=== PATIENT | male | born 1965 | race African-American/Black ===

== ENCOUNTER 2018-05-06 20:20 | Emergency (ER) | payer OTHER, MEDICAID ==
[~2018-05-06] VITALS: Ht 182.9 cm; Wt 128.0 kg
[~2018-05-06 20:20] MED LIST: AMLO10TA4 PO; CLON0.2T PO; COR6 PO; DOCU-138 PO; HYDR100T26 PO; ISOS20TA57 PO; LAM15 PO; LEVE1000 PO; OMEP40CA34 PO; TAMS-11 PO; VENL-180 PO
[2018-05-06] MEDS ORDERED: ASPIRIN 325MG TABLET PO ONE (21:15)
[2018-05-06 21:39] LABS: HEMATOCRIT. 41.2 % (42.0-52.0); HEMOGLOBIN. 13.3 g/dL (14.0-18.0); MEAN CORPUSCULAR HEMOGLOBIN 27.2 pg (28.0-32.0); MEAN CORPUSCULAR VOLUME 84.5 fL (80.0-94.0); MEAN PLATELET VOLUME 8.9 fl (7.4-10.4); PLATELET 166 x1000/uL (130-400); RED BLOOD CELL COUNT 4.88 mill/uL (4.7-6.1); RED CELL DISTRIBUTION WIDTH 17.4 % (11.6-14.6)
[2018-05-06 22:02] LABS: PLATELET ESTIMATE NORMAL
[2018-05-06 23:17] LABS: CHLORIDE 110 mEq/L (98-107)
[2018-05-07] MEDS ORDERED: ASPIRIN 81MG TABLET PO NR (02:15)
[2018-05-07 06:25] VITALS: BP 166/94
[2018-05-07] MEDS ORDERED: HYDROCODONE/ACETAMINOPHEN 5/325MG TABLET PO SCH (08:09)
[2018-05-07] MEDS ORDERED: HYDRALAZINE HCL 50MG TABLET PO SCH (08:09)
== END 2018-05-07 08:45 | disposition left against medical advice (07) ==
LOC: EDBD 20:20 → ER 20:20 → EDBEDREQTM 23:45 → EDBEDREQ 23:45 → ENRESERV 05-07 07:07 → CANRESERV 05-07 07:07 → ER 05-07 08:45 → CANBEDREQ 05-07 16:51
DX: R07.9 Chest pain, unspecified (principal); N17.9 Acute kidney failure, unspecified; I10 Essential (primary) hypertension; R94.31 Abnormal electrocardiogram [ECG] [EKG]; Z79.899 Other long term (current) drug therapy; Z90.49 Acquired absence of other specified parts of digestive tract
CPT/HCPCS: 36415; 71045; 80053; 83880; 84484; 85025; 85610; 93005; 99291